=== PATIENT | female | born 1990 | race Caucasian/White ===

== ENCOUNTER 2016-07-22 16:48 | Inpatient (IN) | payer BC ==
[2016-07-22] VITALS (21 sets, daily range): BP systolic 96–145; BP diastolic 52–88
[~2016-07-22] VITALS: Ht 170.2 cm; Wt 113.0 kg
[2016-07-22] MEDS ORDERED: PRENTAB9 PO (17:02)
[2016-07-22] MEDS ORDERED: OXYTOCIN DRIP 30 UNITS in APPROPRIATE DILUENT 1 EA IV SCH (18:00)
[2016-07-22 18:25] LABS: MEAN CORPUSCULAR HEMOGLOBIN 26.9 pg (27.0-33.0); MEAN CORPUSCULAR HGB CONC 32.7 g/dl (32.0-36.5); RED CELL DISTRIBUTION WIDTH 14.8 % (11.5-14.5); WHITE BLOOD COUNT 11.2 K/mm3 (4.0-10.0)
[2016-07-22] MEDS: LR 1,000 ML IV SCH ×2 (18:35→21:50)
--- NOTE | 2016-07-22 19:02 | HPE ---
DATE OF ADMISSION: 07/22/2016 Alisa is a 25-year-old 2, para 0-0-1-0 at 40 weeks gestation with an estimated date of confinement (EDC) of 07/22/2016 based on last period and confirmed by first trimester ultrasound. She presents to labor and delivery today for induction of labor due to large for gestational age infant, possible pending macrosomia, per consult with Dr. Maryuri Whitehead. She does report some irregular painful contractions and denies vaginal bleeding and leakage of fluid. Her fetus has been active. care was initiated at [facility] in the very first trimester. course complicated by large for gestational age infant. OBSTETRICAL HISTORY: August 2015: She had a spontaneous at 11 weeks gestation. OB LABS: Blood type is O negative, antibody screen negative, rubella immune, VDRL nonreactive. Urine culture: No growth. Hepatitis B surface antigen negative. HIV negative. Hepatitis C nonreactive. Gonorrhea and chlamydia negative. She declined all genetic serum screening markers. Gestational diabetic screening 111 and GBS negative. PAST MEDICAL HISTORY: Seasonal allergies. Childhood varicella. Chlamydia. SURGERIES: None. FAMILY HISTORY: Diabetes and hypertension. SOCIAL HISTORY: The patient is single. There does not appear to be a father of baby involved at this time. She does have a friend at bedside for support. She is a nonsmoker. Denies alcohol and drug use. She does have a history a couple years ago of positive chlamydia. Her chlamydia in has been negative. She denies history of abuse - physical, sexual and emotional. ALLERGIES: No known drug allergies. MEDICATIONS: - vitamin OBJECTIVE: Temperature 98.5, pulse 85, blood pressure 135/78. heart rate was 140 upon arrival with moderate variability, positive aceleratios, no decelerations observed. Her abdomen is gravid, cephalic presentation. Estimated weight approximately 4200 grams. Sterile vaginal exam: 2 cm dilated, 80% effaced, -2 station. Membranes are intact and positive bloody show. She does show some contractions approximately every 4 minutes. ASSESSMENT: Intrauterine at 40 weeks gestation. heart rate category 1, large for gestational age . PLAN: Admit the patient to labor and delivery. Out of bed ad rosmery. Clear liquid diet. Labs as ordered. Start IV Pitocin for labor induction. The patient desires an epidural for her labor coping when in active labor. I did review risks to induction, including increased risk for section, failed induction, intolerance to labor. The patient's questions have all been answered, and she does desire to proceed with induction of labor at this time. I do anticipate labor and a spontaneous vaginal delivery.
[2016-07-22] MEDS ORDERED: FENTANYL 2MCG/ML ROPIVACAINE 0.2% NACL 250 ML CADD As Ordered ONE (21:02)
[2016-07-22] MEDS ORDERED: FENTANYL/ROPIVACAINE/NACL CADD 250 ML EPIDURAL SCH (21:47)
[2016-07-22] MEDS ORDERED: EPIDURAL/PCA KEYS XX PRN (21:47)
[2016-07-22] MEDS ORDERED: ONDANSETRON 4MG/2ML VIAL (J2405) IV PRN (21:47)
[2016-07-22] MEDS ORDERED: diphenhydrAMINE INJ 50MG/ML VIAL (J1200) IV PRN (21:47)
[2016-07-22] MEDS ORDERED: EPIDURAL COMMENT XX SCH (21:47)
[2016-07-22] MEDS ORDERED: REFRIGERATOR IV KEYS XX PRN (21:47)
[2016-07-22] MEDS ORDERED: LACTATED RINGER'S 1000 ML IV PRN (21:47)
[2016-07-22] MEDS ORDERED: NALOXONE INJ 0.4 MG/1 ML VIAL (J2310) IV PRN (21:47)
[2016-07-22] MEDS ORDERED: ePHEDrine SULFATE 25 MG/5 ML(5MG/ML) SYRINGE IV PRN (21:47)
[2016-07-23] VITALS (27 sets, daily range): BP systolic 101–136; BP diastolic 54–88
[2016-07-23] MEDS: LR 1,000 ML IV SCH (03:16)
[2016-07-23] MEDS ORDERED: ACETAMINOPHEN 500 MG TAB PO ONE (05:30)
[2016-07-23] MEDS ORDERED: ACETAMINOPHEN 500 MG TAB As Ordered ONE (05:34)
[2016-07-23] MEDS ORDERED: UNASYN 3 GM VIAL As Ordered ONE (05:54)
[2016-07-23] MEDS: AMPICILLIN SOD/SULBACTAM SOD 3 GM in D5W MINI-BAG PLUS 100 ML IV SCH ×3 (05:57→18:25)
[2016-07-23 07:41] LABS: CORD GAS HCO3 A 25.7 MEQ/L; CORD GAS O2 SAT A 20.3 %; CORD GAS PH A 7.196 UNITS; CORD GAS PO2 A < 10.0 mmHg; CORD GAS SBC A 19.3 MEQ/L; CORD GAS TCO2 A 27.8 MEQ/L
[2016-07-23 07:42] LABS: CORD GAS ABE V -4.6; CORD GAS HCO3 V 20.9 MEQ/L; CORD GAS PCO2 V 40.1 mmHg; CORD GAS PH V 7.335 UNITS; CORD GAS PO2 V 24.4 mmHg; CORD GAS SBC V 19.6 MEQ/L; CORD GAS TCO2 V 22.1 MEQ/L
[2016-07-23] MEDS ORDERED: OXYTOCIN DRIP 30 UNITS in APPROPRIATE DILUENT 1 EA IV SCH (07:42)
[2016-07-23] MEDS ORDERED: DIBUCAINE 1% OINTMENT 30GM TOP PRN (07:45)
[2016-07-23] MEDS ORDERED: ACETAMINOPHEN 500 MG TAB PO PRN (07:45)
[2016-07-23] MEDS ORDERED: IBUPROFEN 800 MG TAB PO PRN (07:45)
[2016-07-23] MEDS ORDERED: DOCUSATE SODIUM 100 MG CAP PO PRN (07:45)
[2016-07-23] MEDS ORDERED: MEASLES,MUMPS,RUBELLA VACCINE INJ (MMR-II) (90707) SC SCH (07:45)
[2016-07-23] MEDS ORDERED: ANUSOL HC CREAM 30GM TOP PRN (07:45)
[2016-07-23] MEDS ORDERED: METHYLERGONOVINE MALEATE 0.2 MG TAB PO PRN (07:45)
--- NOTE | 2016-07-23 07:56 | DN ---
DATE: 07/23/2016 Alisa is a 25-year-old, 2, para 1-0-1-1 now, who was admitted to labor and delivery for induction of labor due to large for gestational age. IV Pitocin was started and labor ensued. She did utilize an epidural for her labor coping. Spontaneous rupture of membranes at 2030 for a small amount of clear fluid. She progressed to full dilation at 0542. She pushed to a normal spontaneous vaginal delivery of a live female in occiput anterior (OA) position with restitution to left occiput transverse (LOT) position at 0706. The shoulders delivered with gentle downward guidance and the corpus immediately followed. The was placed on the maternal abdomen crying and active. The cord was clamped times two and cut by the maternal friend. Cord blood and cord gases were obtained. Spontaneous expulsion of an intact placenta with a three-vessel cord by Espinosa mechanism was at 0713. There were remaining membranes that were teased out with ring forceps. Uterine hemostasis was achieved with IV Pitocin rapid infusion and uterine fundal massage. Estimated blood loss 350 mL. The female weighed 4148 grams, 9 pounds 2 ounces, 9 and 9. Mom has named her Jennifer. Perineum and vagina were inspected and noted to have a second-degree midline laceration that was repaired with #3-0 Rapide in the usual fashion. Of note, there was a maternal fever of 100.3 and there was a strong foul odor and cloudy amniotic fluid noted during the second stage. A dose of Unasyn was provided before delivery and will be continued for 24 hours . Diagnosis of chorioamnionitis. There was also tachycardia during the second stage. Mom and baby are stable at this time and will be transferred to mother/baby care unit once they are recovered. At the close of delivery, lap counts, instrument counts and needle counts were correct and verified.
[2016-07-23] MEDS: PRENATAL VITAMIN TAB PO SCH (09:00)
[2016-07-23] MEDS: RHOGAM 300 MCG (1500 IU) INJ (J2790) IM SCH (09:56)
[2016-07-24] MEDS: AMPICILLIN SOD/SULBACTAM SOD 3 GM in D5W MINI-BAG PLUS 100 ML IV SCH ×2 (00:47→06:49)
[2016-07-24 06:54] VITALS: BP 112/69
[2016-07-24] MEDS: PRENATAL VITAMIN TAB PO SCH (09:00)
[2016-07-24 10:00] VITALS: BP 139/89
[2016-07-24 14:00] VITALS: BP 141/76
[2016-07-24] MEDS: RHOGAM 300 MCG (1500 IU) INJ (J2790) IM SCH (16:00)
[2016-07-24 18:00] VITALS: BP 128/82
[2016-07-25 06:00] VITALS: BP 143/79
[2016-07-25] MEDS ORDERED: ACET50TA PO (10:21)
[2016-07-25] MEDS ORDERED: IBUP-1114 PO (10:21)
[2016-07-25] MEDS: PRENATAL VITAMIN TAB PO SCH (10:29)
== END 2016-07-25 10:55 | disposition home or self-care (01) | DRG 560 ==
LOC: M LDI 16:48 → M OBS 07-23 13:44
PROVIDERS: ADMIT Advanced Practice Midwife; ATTEND Advanced Practice Midwife
PROC: 3E0 Administration, Physiological Systems and Anatomical Regions, Introduction (ICD-10-PCS; 2016-07-22)
PROC: 10E0XZZ Delivery of Products of Conception, External Approach (ICD-10-PCS; principal; 2016-07-23)
PROC: 0KQM0ZZ Repair Perineum Muscle, Open Approach (ICD-10-PCS; 2016-07-23)
DX: O36.63X0 Maternal care for excessive fetal growth, third trimester, not applicable or unspecified (principal); O41.1230 Chorioamnionitis, third trimester, not applicable or unspecified; Z37.0 Single live birth; Z3A.40 40 weeks gestation of pregnancy; Z83.3 Family history of diabetes mellitus; Z82.49 Family history of ischemic heart disease and other diseases of the circulatory system; O70.1 Second degree perineal laceration during delivery; O76 Abnormality in fetal heart rate and rhythm complicating labor and delivery

== ENCOUNTER → 2017-03-16 | Outpatient (CLI) | payer BC ==
[~2017-03-16] MED LIST: ACET50TA PO; IBUP-1114 PO; PRENTAB9 PO
== END ==
LOC: M SMT 09:30
PROVIDERS: ATTEND Advanced Practice Midwife
DX: N91.2 Amenorrhea, unspecified (principal)

== ENCOUNTER → 2018-03-15 | Outpatient (CLI) | payer BC | LOC: M RAD 17:29 | DX: O20.8 Other hemorrhage in early pregnancy (principal); Z3A.08 8 weeks gestation of pregnancy | CPT/HCPCS: 76801 ==